=== PATIENT | male | born 1960 | race Caucasian/White ===

== ENCOUNTER 2019-07-12 11:18 | Inpatient (IN) ==
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
--- NOTE | 2019-07-12 12:04 | Diag Imaging Result Doc PS360 ---
EXAM: CHEST-1 VIEW 07/12/2019 HISTORY: sob TECHNIQUE: AP portable upright at 1155 COMMENT: Considering differences in technique and inspiration there has been no appreciable change since 11/22/2017. IMPRESSION: Stable chest. Electronically signed by Feliciano Greco 07/12/2019 12:02 PM
[2019-07-12] MEDS ORDERED: DUONEB (A & A) INH ONE (12:10)
[2019-07-12 12:31] LABS: BASO# 0.03 X1000 (0.0-0.2); BASO% 0.4 % (0.0-0.8); EOS# 0.13 X1000 (0.0-0.7); EOS% 1.8 % (0.0-10.0); HEMATOCRIT 56.9 % (42.0-52.0); HEMOGLOBIN 17.3 g/dL (14.0-18.0); IMM GRAN# 0.02 X1000 (0.0-0.04); IMM GRAN% 0.3 % (0.0-0.5); LYMPH# 1.73 X1000 (1.2-3.4); LYMPH% 23.5 % (20.5-51.1); MCH 30.1 PG (27-31); MCHC 30.4 g/dL (33-37); MCV 99.1 FL (81-99); MONO# 0.55 X1000 (0.11-0.59); MONO% 7.5 % (1.7-9.3); MPV 11.5 FL (7.4-10.4); NEUT# 4.91 X1000 (1.4-6.5); NEUT% 66.5 % (42.2-75.2); PLT 183 X1000 (130-400); RBC 5.74 XMIL (4.7-6.1); RDW 15.1 % (11.5-14.5); WBC 7.37 X1000 (4.8-10.8)
[2019-07-12 12:36] LABS: BE 8.7 mmoll (-3.0-3.0); BLOOD TYPE ARTERIAL; HCO3-(ACT) 31.5 mmoll (20.0-26.0); METHB 0.9 % (0.0-1.5); MODALITY CANNULA; O2(CT) 23.6 mL/dL (15.0-23.0); O2HB 92.7 % (95.0-99.0); PO2(98.6) 83 mmHg (60-100); SAMPLE BLOOD; THB 18.1 g/dL (11.5-17.4); pH(98.6) 7.35 (7.35-7.45)
[2019-07-12 12:38] LABS: ALLEN TEST YES; PCO2(98.6) 69 mmHg (35-45)
[2019-07-12 12:42] LABS: AGAP 7; ALB/GLOB RATIO 1.4; ALKALINE PHOSPHATASE 108 U/L (32-122); BUN 11 mg/dL (8-22); CHLORIDE 96 mmol/L (98-107); COSMO 276; CREATININE 0.7 mg/dL (0.7-1.2); ESTIMATED GFR > 60; GLUCOSE 110 mg/dL (70-104); GOT 27 U/L (10-34); GPT 37 U/L (10-44); POTASSIUM 5.2 mmol/L (3.5-5.1); SODIUM 138 mmol/L (136-145); TCO2 35 mmol/L (25-35); TOTAL BILIRUBIN 0.32 mg/dL (0.20-1.00); TOTAL PROTEIN 6.9 g/dL (6.3-8.3)
[2019-07-12 12:43] LABS: INR 0.89; PROTIME 12.2 Seconds (11.0-16.0)
[2019-07-12 12:44] LABS: PTT 26.1 Seconds (22.3-41.8)
--- NOTE | 2019-07-12 12:51 | EKG Report ---
Test Performed on : 07/12/2019 11:28:23 AM Test Reason : CP Blood Pressure : / mmHG Vent. Rate : 095 BPM Atrial Rate : 095 BPM P-R Int : 154 ms QRS Dur : 092 ms QT Int : 414 ms P-R-T Axes : 041 095 066 degrees QTc Int : 520 ms Normal sinus rhythm. Rightward axis T wave abnormality, consider anterolateral ischemia Prolonged QT Abnormal ECG When compared with ECG of 22-NOV-2017 17:23, Nonspecific T wave abnormality now evident in Inferior leads T wave inversion now evident in Anterolateral leads Unconfirmed Result
[2019-07-12 12:52] LABS: CK PROFILE 289 U/L (24-204)
[2019-07-12 13:25] LABS: CK INDEX 4.4 (0.0-2.5); CK-MB 12.83 ng/mL (0.0-5.0)
[2019-07-12 13:47] LABS: BILIRUBIN URINE NEGATIVE (NEGATIVE); BLOOD URINE NEGATIVE (NEGATIVE); COLOR YELLOW; GLUCOSE URINE NEGATIVE (NEGATIVE); KETONE URINE NEGATIVE (NEGATIVE); LEUKOCYTES URINE NEGATIVE (NEGATIVE); NITRITE URINE NEGATIVE (NEGATIVE); PROTEIN URINE 70 mg/dL (NEGATIVE); SP GRAVITY URINE 1.017; TURBIDITY URINE CLEAR (CLEAR); URINE SOURCE CLEAN CATCH; UROBILINOGEN URINE NORMAL (NORMAL)
[2019-07-12 13:49] LABS: UR EPITHELIAL CELLS <10 /HPF (<10); URINE BACTERIA NEGATIVE /HPF; URINE RBC <10 /HPF (<10); URINE WBC <10 /HPF (<10)
[2019-07-12] MEDS ORDERED: SOLU-MEDROL IV ONE (14:10)
[2019-07-12] MEDS: ROCEPHIN 1 GM in NS 50 ML IV SCH (14:30)
[2019-07-12 14:53] LABS: FREE T4 1.08 ng/dL (0.93-1.70); TSH 1.64 uIUmL (0.27-4.20)
[2019-07-12 14:59] LABS: UR AMPHETAMINES QUAL NONE DETECTED (NONE DETECT); UR BARBITUATES QUAL NONE DETECTED (NONE DETECT); UR BENZODIAZEPIN QUAL NONE DETECTED (NONE DETECT); UR CANNABINOIDS QUAL NONE DETECTED (NONE DETECT); UR COCAINE QUAL NONE DETECTED (NONE DETECT); UR METHADONE QUAL NONE DETECTED (NONE DETECT); UR OPIATES QUAL NONE DETECTED (NONE DETECT); UR OXYCODONE QUAL NONE DETECTED (NONE DETECT); UR PCP QUAL NONE DETECTED (NONE DETECT)
[2019-07-12] MEDS: DUONEB (A & A) INH SCH ×3 (15:30→23:55)
[2019-07-12] MEDS ORDERED: TYLENOL PO PRN (17:02)
[2019-07-12] MEDS ORDERED: ZOFRAN IV PRN (17:02)
--- NOTE | 2019-07-12 19:02 | ED EKG INTERP ---
This chart was entered by Kelsy Cabral Scribe, acting as scribe for Luciano Sanchez MD. EKG Interpretation - EKG Time of EKG reading by physician:: 11:28 EKG Read and Signed by:: Luciano Sanchez EKG Interpretation (*Must complete 3 of following elements*): Abnormal Rate: 95 Rhythm: Normal sinus rhythm [place]: right ST Wave: non-specific ST changes Comments: no STEMI, prolonged QT interval Attestation - Physician/ SAMSON Attestation The physician spent face to face time with patient:: Yes Advanced Practice Provider documentation review:: Supervising physician onsite and consulted in the evaluation and care of this patient. The physician did have a face to face encounter with the patient. This chart was documented by the indicated scribe, (Kelsy Cabral, Lena) and accurately reflects the services I performed and decisions made by me, Luciano Sanchez MD, as attested by the provider's signature.
[2019-07-12] MEDS: PULMICORT INH SCH (20:07)
[2019-07-12] MEDS: SOLU-MEDROL IV SCH (22:32)
[2019-07-13 04:36] LABS: ALLEN TEST YES; BE 3.2 mmoll (-3.0-3.0); BLOOD TYPE ARTERIAL; HCO3-(ACT) 27.3 mmoll (20.0-26.0); METHB 0.6 % (0.0-1.5); O2(CT) 24.5 mL/dL (15.0-23.0); O2HB 94.6 % (95.0-99.0); PO2(98.6) 86 mmHg (60-100); SAMPLE BLOOD; THB 18.4 g/dL (11.5-17.4)
[2019-07-13 04:39] LABS: PCO2(98.6) 66 mmHg (35-45)
[2019-07-13 04:40] LABS: MODALITY CANNULA
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
[2019-07-13] MEDS: DUONEB (A & A) INH SCH ×5 (06:28→23:00)
[2019-07-13] MEDS: PULMICORT INH SCH ×2 (06:30→19:27)
[2019-07-13] MEDS: SOLU-MEDROL IV SCH ×3 (06:49→23:09)
[2019-07-13 07:36] LABS: HEMOGLOBIN 17.7 g/dL (14.0-18.0); LYMPH# 0.68 X1000 (1.2-3.4); LYMPH% 10.4 % (20.5-51.1); MCH 29.9 PG (27-31); MCHC 30.5 g/dL (33-37); MCV 98.1 FL (81-99); MONO# 0.19 X1000 (0.11-0.59); MONO% 2.9 % (1.7-9.3); MPV 11.4 FL (7.4-10.4); NEUT# 5.68 X1000 (1.4-6.5); NEUT% 86.7 % (42.2-75.2); PLT 193 X1000 (130-400); RBC 5.91 XMIL (4.7-6.1); WBC 6.55 X1000 (4.8-10.8)
[2019-07-13 08:05] LABS: AGAP 12; ALB/GLOB RATIO 1.3; ALBUMIN 4.1 g/dL (3.5-5.0); ALKALINE PHOSPHATASE 104 U/L (32-122); BUN 13 mg/dL (8-22); CALCIUM 9.3 mg/dL (8.8-10.2); CHLORIDE 91 mmol/L (98-107); COSMO 276; CREATININE 0.8 mg/dL (0.7-1.2); ESTIMATED GFR > 60; GLUCOSE 173 mg/dL (70-104); GOT 19 U/L (10-34); GPT 34 U/L (10-44); POTASSIUM 4.5 mmol/L (3.5-5.1); SODIUM 136 mmol/L (136-145); TCO2 33 mmol/L (25-35); TOTAL BILIRUBIN 0.35 mg/dL (0.20-1.00); TOTAL PROTEIN 7.3 g/dL (6.3-8.3)
[2019-07-13 10:01] LABS: LYMPHS 20 % (21-51); MONO 2 % (1-9); SEGS 78 % (42-75)
[2019-07-13] MEDS: LOVENOX SUBQ SCH (11:10)
--- NOTE | 2019-07-13 12:10 | Diag Imaging Result Doc PS360 ---
EXAM: CHEST-2 VIEWS 07/13/2019 HISTORY: short of breath TECHNIQUE: Two views of the chest COMMENT: The inspiration is slightly better than on the previous study of 07/12/2019. No definite focal consolidation is present although there is ill-defined opacity over the left costophrenic angle region. This may represent a small focus of pneumonia or atelectasis. IMPRESSION: Minimal left lower lobe atelectasis. Electronically signed by Feliciano Greco 07/13/2019 12:08 PM
[2019-07-13] MEDS: ACCOLATE PO SCH ×2 (12:37→20:29)
--- NOTE | 2019-07-13 14:05 | ECHO REPORT ---
ORDER DATE: 07/12/2019 INDICATION: Dyspnea, elevated proBNP. FINDINGS: 1. The right atrium appears somewhat enlarged. 2. Mild tricuspid regurgitation. RV systolic pressure of 46. 3. Right ventricle appears enlarged with mild reduction in RV systolic function. There is some flattening of the interventricular septum, suggesting right ventricular pressure and volume overload. 4. Trace pulmonic insufficiency. 5. Suggestion of mild left atrial enlargement with a dimension of 4.6 cm. 6. No mitral prolapse. Mild mitral regurgitation. No mitral stenosis. 7. Normal LV size, end-diastolic dimension of 4.6 cm. Mild left ventricular hypertrophy with a posterior and interventricular septal wall thickness 1.2 cm. Normal LV systolic function. Estimated EF of 65% with normal wall motion. 8. Aortic valve opens well. It is trileaflet. No evidence of stenosis or insufficiency. 9. Aorta appears normal in visualized segments. 10. No pericardial effusion identified. 11. Based on the appearance of the right ventricle, if clinical situation correlates, would consider possible sleep apnea evaluation in the future. cc: Pérez Figueredo MD
[2019-07-13] MEDS: ROCEPHIN 1 GM in NS 50 ML IV SCH (15:21)
--- NOTE | 2019-07-13 15:35 | PROGRESS NOTE ---
DATE: 07/13/2019 INTERVAL HISTORY: The patient with only minimal improvement in dyspnea on exertion. Still some fairly significant wheezing. He has tolerated the steroid so far with none of his previous intolerance. Remains afebrile. No acute events overnight. No new complaints. REVIEW OF SYSTEMS: Twelve-point review of systems negative except as per interval history. LABS: WBC 6.5, hemoglobin 17.7, hematocrit 58, platelets 193,000. ABG with pH 7.3, pCO2 of 66, PO2 of 86 on 3 liters by nasal cannula. Sodium 136, potassium 4.5, BUN 13, creatinine 0.8, glucose 173. Troponin negative x3. VITAL SIGNS: T-max 98.5 degrees, pulse 86, respirations 24, blood pressure 138/64, and O2 saturation 90% on 3 liters by nasal cannula. IMAGING: Repeat chest x-ray with minimal left lower lobe atelectasis. No evidence of pneumonia. Echocardiogram with mild to moderate pulmonary hypertension at 46 and evidence of right ventricular failure again suggesting pulmonary hypertension. PHYSICAL EXAMINATION: General: No acute distress, morbidly obese. Vital Signs: As above. HEENT: Normocephalic, atraumatic. Moist mucous membranes. Cardiovascular: Regular rate and rhythm. No murmurs noted. Pulmonary: Still with fairly significantly decreased breath sounds throughout and expiratory wheezing slightly improved from previous. Abdomen: Soft, nontender, nondistended. Bowel sounds positive. Extremities: Peripheral pulses intact. No clubbing or cyanosis. Neurologic: Cranial nerves grossly intact. No focal deficits identified. Psychiatric: Normal mood and affect. Awake, alert, oriented x3. ASSESSMENT AND PLAN: 1. Acute on chronic hypoxic and hypercapnic respiratory failure, chronic obstructive pulmonary disease exacerbation. Oxygenation about the same. We may have to go up slightly on his oxygen from the 3 liters he is supposed to be on at home. The patient had reported previous intolerance to steroids. We started a relatively low dose given his ongoing symptoms and his tolerance of steroids so far. We will go ahead and increase those some and continue to monitor. Continue DuoNeb, pulmonary toilet. Repeat ABG in the morning. ABG today showed minimal improvement in his CO2 retention and essentially stable oxygenation. Discussed with case management options trying get him oxygen at home, and even though the patient is living in a fdc/intermediate house they believe that he can be set up with regular oxygen at home. 2. Hyperkalemia, resolved with fluids overnight. 3. Morbid obesity. Patient has been counseled on diet and exercise. 4. Elevated BNP, pulmonary hypertension. The patient's BNP elevated on admission. Not really any fluid on chest x-ray, but there was some concern for congestive heart failure contributing to his issues. Echocardiogram, however, shows normal ejection fraction. Does suggest pulmonary hypertension likely related to either sleep apnea or his chronic untreated hypoxia. The patient was supposed to be on 3 liters of oxygen at home, but has been off of that for approximately 1 year.
[2019-07-14 04:55] LABS: ALLEN TEST YES; BE 4.2 mmoll (-3.0-3.0); BLOOD TYPE ARTERIAL; HCO3-(ACT) 28.1 mmoll (20.0-26.0); O2HB 93.8 % (95.0-99.0); PO2(98.6) 71 mmHg (60-100); SAMPLE BLOOD; SAO2 96.2 % (95.0-100.0); THB 16.7 g/dL (11.5-17.4); pH(98.6) 7.29 (7.35-7.45)
[2019-07-14] MEDS: SOLU-MEDROL IV SCH ×3 (05:00→23:19)
[2019-07-14 05:04] LABS: PCO2(98.6) 70 mmHg (35-45)
[2019-07-14 05:05] LABS: MODALITY CANNULA
[2019-07-14 07:19] LABS: HEMATOCRIT 57.4 % (42.0-52.0); HEMOGLOBIN 17.1 g/dL (14.0-18.0); IMM GRAN# 0.02 X1000 (0.0-0.04); IMM GRAN% 0.2 % (0.0-0.5); LYMPH# 0.52 X1000 (1.2-3.4); LYMPH% 5.8 % (20.5-51.1); MCH 30.1 PG (27-31); MCHC 29.8 g/dL (33-37); MCV 100.9 FL (81-99); MONO# 0.26 X1000 (0.11-0.59); MONO% 2.9 % (1.7-9.3); MPV 11.3 FL (7.4-10.4); NEUT# 8.22 X1000 (1.4-6.5); NEUT% 91.1 % (42.2-75.2); PLT 183 X1000 (130-400); RBC 5.69 XMIL (4.7-6.1); RDW 15.1 % (11.5-14.5); WBC 9.02 X1000 (4.8-10.8)
[2019-07-14 07:47] LABS: AGAP 8; ALB/GLOB RATIO 1.3; ALKALINE PHOSPHATASE 91 U/L (32-122); BUN 19 mg/dL (8-22); CALCIUM 9.2 mg/dL (8.8-10.2); CHLORIDE 99 mmol/L (98-107); COSMO 289; CREATININE 0.8 mg/dL (0.7-1.2); ESTIMATED GFR > 60; GLUCOSE 163 mg/dL (70-104); GOT 20 U/L (10-34); GPT 38 U/L (10-44); POTASSIUM 5.3 mmol/L (3.5-5.1); SODIUM 142 mmol/L (136-145); TCO2 35 mmol/L (25-35); TOTAL BILIRUBIN 0.15 mg/dL (0.20-1.00)
[2019-07-14] MEDS: DUONEB (A & A) INH SCH ×5 (08:17→23:11)
[2019-07-14] MEDS: PULMICORT INH SCH ×2 (08:17→19:44)
[2019-07-14] MEDS: LOVENOX SUBQ SCH (09:30)
[2019-07-14] MEDS: ACCOLATE PO SCH ×2 (09:31→23:23)
[2019-07-14] MEDS ORDERED: ROBITUSSIN PO PRN (10:20)
[2019-07-14] MEDS ORDERED: KAYEXALATE PO ONE (11:30)
--- NOTE | 2019-07-14 11:56 | PROGRESS NOTE ---
DATE: 07/14/2019 SUBJECTIVE: The patient is awake. Not in any obvious distress. OBJECTIVE: Vital signs: Vital signs are as follows: Temperature is 98.1 degrees, pulse 86, respiration rate 16, blood pressure is 110/58, oxygen saturation is 95%. HEENT: Atraumatic, normocephalic. Cardiovascular system: S1, S2. Respiratory system: Has evidence of good air entry bilaterally. Abdomen: Soft, nontender. No masses felt. Extremities: No evidence of significant edema in the lower extremities. Central nervous system: No obvious focal deficit noted. LABORATORY DATA: WBCs 9.02, hematocrit 37.4, platelet count is 183. ABG is 7.29/70/71/96.2%. Sodium is 142, potassium 5.2, chloride is 99, bicarbonate is 25. BUN is 19, creatinine 0.8. IMAGING STUDIES: X-ray of the chest was done on 07/13/2019 and shows minimal left lower lobe atelectasis. ASSESSMENT AND PLAN: 1. Acute hypercapnic respiratory failure secondary to chronic obstructive pulmonary disease. Maintain patient on oxygen supplementation. Follow up on patient's clinical progression, including arterial blood gases. 2. Chronic obstructive pulmonary disease exacerbation. Maintain patient on nebulized bronchodilators, along with steroids and also antibiotics. 3. Hyperkalemia. Patient given a dose of Kayexalate. We will follow up on potassium level. 4. Erythrocytosis most likely secondary to chronic hypoxia. The patient can follow up with Hematology in the outpatient. 5. Deep vein thrombosis prophylaxis. Lovenox. 6. Gastrointestinal prophylaxis. Proton pump inhibitor. cc: Medardo Beckford MD [facility]
[2019-07-14] MEDS: ROCEPHIN 1 GM in NS 50 ML IV SCH (13:47)
[2019-07-14] MEDS: HUMALOG SUBQ SCH ×2 (16:59→22:49)
[2019-07-15] MEDS: SOLU-MEDROL IV SCH ×2 (06:12→14:27)
[2019-07-15 06:49] LABS: ALLEN TEST YES; BE 9.2 mmoll (-3.0-3.0); BLOOD TYPE ARTERIAL; METHB 0.9 % (0.0-1.5); O2(CT) 23.8 mL/dL (15.0-23.0); O2HB 96.1 % (95.0-99.0); PO2(98.6) 137 mmHg (60-100); SAMPLE BLOOD; SAO2 98.5 % (95.0-100.0); THB 17.5 g/dL (11.5-17.4); pH(98.6) 7.21 (7.35-7.45)
[2019-07-15 06:51] LABS: MODALITY VENTIMASK; PCO2(98.6) 108 mmHg (35-45)
[2019-07-15] MEDS ORDERED: PROTONIX PO SCH (07:00)
[2019-07-15] MEDS: PULMICORT INH SCH (07:56)
[2019-07-15] MEDS: DUONEB (A & A) INH SCH ×4 (07:57→23:00)
[2019-07-15 08:03] LABS: EOS# 0.03 X1000 (0.0-0.7); EOS% 0.4 % (0.0-10.0); HEMATOCRIT 58.9 % (42.0-52.0); HEMOGLOBIN 17.3 g/dL (14.0-18.0); IMM GRAN# 0.02 X1000 (0.0-0.04); IMM GRAN% 0.2 % (0.0-0.5); LYMPH# 0.53 X1000 (1.2-3.4); LYMPH% 6.2 % (20.5-51.1); MCH 30.2 PG (27-31); MCHC 29.4 g/dL (33-37); MONO% 2.4 % (1.7-9.3); MPV 12.4 FL (7.4-10.4); NEUT# 7.71 X1000 (1.4-6.5); NEUT% 90.8 % (42.2-75.2); PLT 113 X1000 (130-400); RBC 5.72 XMIL (4.7-6.1); RDW 15.4 % (11.5-14.5); WBC 8.49 X1000 (4.8-10.8)
[2019-07-15] MEDS: HUMALOG SUBQ SCH ×3 (08:34→16:43)
--- NOTE | 2019-07-15 08:56 | PROGRESS NOTE ---
DATE: 07/15/2019 SUBJECTIVE: Patient is resting comfortably. He is on BiPAP. OBJECTIVE: Vital signs: Temperature is 98.8 degrees, pulse is 94, respirations 20, blood pressure is 143/52, oxygen saturation is 100%. HEENT: Atraumatic, normocephalic. BiPAP in place. Cardiovascular: S1, S2. Respiratory: Has evidence of good air entry bilaterally. Abdomen: Soft, nontender. No masses felt. Extremities: No evidence of edema. Central nervous system: No obvious focal deficit noted. LABORATORY DATA: WBC is 8.47, hematocrit is 58.9 with a platelet count of 113,000. ABG 7.21/108/137/98.5. ASSESSMENT AND PLAN: 1. Acute hypercapnic respiratory failure secondary to chronic obstructive pulmonary disease exacerbation. Maintain patient on oxygen supplementation as well as BiPAP. The patient is a DNR. 2. Chronic obstructive pulmonary disease exacerbation. Continue nebulized bronchodilators, steroids as well as antibiotics. Maintain patient on BiPAP. 3. Erythrocytosis secondary to chronic hypoxia. Aware. 4. Advanced Directive. The patient is DNR. 5. Deep vein thrombosis prophylaxis. Lovenox. 6. Gastrointestinal prophylaxis. Proton pump inhibitor. cc: Medardo Beckford MD
[2019-07-15 08:57] LABS: HEMOGLOBIN A1C 6.2 % (4.8-6.0)
[2019-07-15 08:59] LABS: AGAP 8; ALB/GLOB RATIO 1.3; ALKALINE PHOSPHATASE 99 U/L (32-122); BUN 19 mg/dL (8-22); CHLORIDE 94 mmol/L (98-107); COSMO 283; CREATININE 0.7 mg/dL (0.7-1.2); ESTIMATED GFR > 60; GLUCOSE 155 mg/dL (70-104); GOT 48 U/L (10-34); GPT 79 U/L (10-44); POTASSIUM 5.1 mmol/L (3.5-5.1); SODIUM 139 mmol/L (136-145); TCO2 37 mmol/L (25-35); TOTAL BILIRUBIN 0.21 mg/dL (0.20-1.00)
[2019-07-15] MEDS: ACCOLATE PO SCH (09:14)
[2019-07-15] MEDS: LOVENOX SUBQ SCH (09:23)
[2019-07-15 10:11] LABS: ALLEN TEST YES; BE 11.1 mmoll (-3.0-3.0); BLOOD TYPE ARTERIAL; HCO3-(ACT) 33.6 mmoll (20.0-26.0); METHB 0.8 % (0.0-1.5); O2(CT) 24.4 mL/dL (15.0-23.0); O2HB 97.1 % (95.0-99.0); PO2(98.6) 212 mmHg (60-100); SAMPLE BLOOD; THB 17.6 g/dL (11.5-17.4)
[2019-07-15 10:15] LABS: pH(98.6) 7.15 (7.35-7.45)
[2019-07-15 10:16] LABS: MODALITY BI PAP; PCO2(98.6) 137 mmHg (35-45)
[2019-07-15] MEDS ORDERED: HALDOL IM ONE (10:42)
[2019-07-15 12:04] LABS: ALLEN TEST YES; BE 11.3 mmoll (-3.0-3.0); BLOOD TYPE ARTERIAL; HCO3-(ACT) 33.5 mmoll (20.0-26.0); METHB 0.9 % (0.0-1.5); O2(CT) 22.9 mL/dL (15.0-23.0); O2HB 90.8 % (95.0-99.0); PO2(98.6) 70 mmHg (60-100); SAMPLE BLOOD; SAO2 92.9 % (95.0-100.0)
[2019-07-15 12:05] LABS: MODALITY BI PAP
[2019-07-15 12:06] LABS: SRATE 24 BPM
[2019-07-15 12:08] LABS: PCO2(98.6) 147 mmHg (35-45); pH(98.6) 7.13 (7.35-7.45)
[2019-07-15] MEDS ORDERED: HALDOL IM PRN (12:21)
[2019-07-15] MEDS: ROCEPHIN 1 GM in NS 50 ML IV SCH (14:27)
[2019-07-15] MEDS: MORPHINE IV PRN (14:31)
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
[2019-07-16] MEDS: DUONEB (A & A) INH SCH ×7 (00:48→23:57)
[2019-07-16] MEDS: PULMICORT INH SCH (06:41)
[2019-07-16] MEDS: PROTONIX PO SCH (18:03)
--- NOTE | 2019-07-16 18:10 | PROGRESS NOTE ---
DATE: 07/16/2019 INTERVAL HISTORY: Patient now on comfort measures only. Has had some hypoxia, but otherwise pretty asymptomatic with it. Hospice was consulted this morning and evaluated patient, but they have reservations about him going to a prison house. Also the prison house, when contacted, has reservations about him being on any kind of benzos or narcotics which would usually be used to control dyspnea when on hospice. Placement attempts are ongoing. REVIEW OF SYSTEMS: Twelve-point review of systems negative as per interval history. VITALS: T-max 98.9, pulse 84, respirations 19, blood pressure 140/72, O2 saturation 97% on nasal cannula. PHYSICAL EXAMINATION: General: No acute distress. Vitals: As above. Cardiovascular: Regular rate and rhythm. No murmurs noted. Pulmonary: Significantly decreased throughout but still some mild expiratory wheezing. Abdomen: Soft, nontender, nondistended. Bowel sounds positive. Extremities: Peripheral pulses intact. Neurologic: Cranial nerves grossly intact. No focal deficits. Psychiatric: Normal mood and affect. Awake, alert, and answers all orientation questions appropriately, although he appears intermittently mildly confused. ASSESSMENT AND PLAN: 1. Acute on chronic hypoxic and hypercapnic respiratory failure, end-stage chronic obstructive pulmonary disease with exacerbation. The patient now going on comfort care. It appears the patient will likely be a placement issue, as his only place to go is a prison house, but they will not allow hospice medications, and hospice is reluctant to sign on him going to the prison house. systems project manager is aware, and is seeking other options. Continue symptomatic treatment. 2. Morbid obesity, pulmonary hypertension, obstructive sleep apnea. The patient is now comfort care. 3. Gastroesophageal reflux disease. It appears the patient's proton pump inhibitor was discontinued at some point. We will go ahead and restart that as patient has requested.
[2019-07-17] MEDS: PROTONIX PO SCH (06:21)
[2019-07-17] MEDS: DUONEB (A & A) INH SCH ×5 (08:17→23:23)
[2019-07-17] MEDS: MORPHINE IV PRN ×2 (11:21→21:09)
--- NOTE | 2019-07-17 16:39 | PROGRESS NOTE ---
DATE: 07/17/2019 SUBJECTIVE: This patient is lying comfortably in bed at this moment. He is not complaining of chest pain or shortness of breath, but he has been complaining of generalized weakness, his is at the bedside and as per the , they are homeless, he has been placed on comfort care treatment but today for some reason they are demanding to get more therapy because they are planning to go home, apparently he has been on oxygen before as well, but they stopped using oxygen because they do not have insurance, as per the he has been having some tremors and likely this is because of his blood sugar, so I will put this patient on pattern blood sugar and sliding scale insulin just in case, and they are basically demanding to restart his home medications, which I did, it looks like hospice has been on board, but this patient does not meet inpatient criteria and as far as I know, they do not have a bed. They do not have a house, he is a heavy smoker and he is still smoking. OBJECTIVE: Vital Signs: Temperature 98.4 degrees, pulse 84, respiratory rate 19, blood pressure 142/114, oxygen saturation 96 on 6 L of nasal cannula. HEENT: Head normocephalic, no trauma. PERRLA. Neck: Supple. No JVD. No masses. Central trachea. Chest: Decreased breath sounds significantly with faint expiratory wheezing. Abdomen: Distended, protuberant with positive bowel sounds. Is soft. Extremities: No edema, no clubbing, no cyanosis. Neurological: This patient is awake. He is alert, he is oriented, but he does have generalized weakness, but apparently as per the he has been on and off confused. LABORATORY: No lab work done today. ASSESSMENT AND PLAN: 1. Acute on chronic hypoxemic and hypercarbic respiratory failure due to end-stage chronic obstructive pulmonary disease with exacerbation, it looks like this patient was placed on comfort care and comfort measures, the problem would be placement. Apparently, the talked to the place she is staying with and they agreed to take some treatment in that place, including narcotics, but I am not quite sure about it. We will need to call this Friday to corroborate that information. It looks like hospice has been set up and Palliative Care is on board, the patient and the basically are demanding to put him back on some of his home medications, which I did, and get some lab work, especially blood sugar because she believes the blood sugar is dropping. 2. Chronic obstructive pulmonary disease exacerbation, as above. I think it is better. He has some mild, faint, expiratory wheezing. 3. Morbid obesity, pulmonary hypertension, obstructive sleep apnea. Continue with same management. 4. Gastroesophageal reflux disease. Continue proton pump inhibitors. 5. Generalized weakness. Continue physical therapy and occupational therapy now. 6. This patient has been placed on comfort measures/comfort care but today for some reason they are demanding treatment. They are demanding to put him back on his home medications, and also he is asking for more rehab, so he can get his strength back, he knows he is an end-stage chronic obstructive pulmonary disease and the also knows that but they believe they can go back to their place that they are staying at right now and they will allow them to keep medications including pain medication, but I am not quite sure about it. I will wait until Friday so the social services assistant and the palliative care team can take care of this. cc: Thaddeus Angulo MD
[2019-07-17] MEDS: HUMULIN R SUBQ SCH (21:10)
[2019-07-17] MEDS: ACCOLATE PO SCH (21:19)
[2019-07-18] MEDS: HUMULIN R SUBQ SCH ×5 (06:24→20:04)
[2019-07-18] MEDS: PROTONIX PO SCH (06:51)
[2019-07-18 07:41] LABS: BASO# 0.01 X1000 (0.0-0.2); BASO% 0.1 % (0.0-0.8); EOS# 0.11 X1000 (0.0-0.7); EOS% 1.5 % (0.0-10.0); HEMATOCRIT 57.2 % (42.0-52.0); IMM GRAN# 0.02 X1000 (0.0-0.04); IMM GRAN% 0.3 % (0.0-0.5); LYMPH# 1.31 X1000 (1.2-3.4); LYMPH% 17.4 % (20.5-51.1); MCH 30.3 PG (27-31); MCHC 29.7 g/dL (33-37); MONO# 0.53 X1000 (0.11-0.59); MPV 11.2 FL (7.4-10.4); NEUT# 5.57 X1000 (1.4-6.5); NEUT% 73.7 % (42.2-75.2); PLT 141 X1000 (130-400); RBC 5.61 XMIL (4.7-6.1); RDW 14.4 % (11.5-14.5); WBC 7.55 X1000 (4.8-10.8)
[2019-07-18 08:08] LABS: AGAP 5; ALB/GLOB RATIO 1.3; ALBUMIN 3.6 g/dL (3.5-5.0); ALKALINE PHOSPHATASE 80 U/L (32-122); BUN 12 mg/dL (8-22); CHLORIDE 93 mmol/L (98-107); COSMO 277; CREATININE 0.5 mg/dL (0.7-1.2); ESTIMATED GFR > 60; GLUCOSE 130 mg/dL (70-104); GOT 15 U/L (10-34); GPT 43 U/L (10-44); MAGNESIUM 1.9 mg/dL (1.5-2.7); PHOSPHORUS 3.5 mg/dL (2.7-4.5); POTASSIUM 4.6 mmol/L (3.5-5.1); SODIUM 138 mmol/L (136-145); TCO2 40 mmol/L (25-35); TOTAL BILIRUBIN 0.58 mg/dL (0.20-1.00); TOTAL PROTEIN 6.4 g/dL (6.3-8.3)
[2019-07-18] MEDS: DUONEB (A & A) INH SCH ×5 (08:14→23:19)
[2019-07-18] MEDS: ACCOLATE PO SCH ×2 (09:55→20:04)
--- NOTE | 2019-07-18 14:09 | PROGRESS NOTE ---
DATE: 07/18/2019 SUBJECTIVE: This patient is lying comfortably in bed. He is complaining of some shortness of breath but no chest pain. He does have generalized weakness. No family members at the bedside. OBJECTIVE: Vital Signs: Temperature 98 degrees, pulse 86, respiratory rate 19, blood pressure 125/60, oxygen saturation 96 on 5 L nasal cannula. HEENT: Head normocephalic, no trauma. PERRLA. Neck: Supple. No JVD. No masses. Central trachea. Chest: Decreased breath sounds significantly with some faint expiratory wheezing. Abdomen: Soft, protuberant, positive bowel sounds. Extremities: No edema, no clubbing, no cyanosis. Neurological: Patient is awake. He is alert. He is oriented. He does have generalized weakness. He is not confused at this moment for me. Yesterday as per the , he has been confused on and off. LABORATORY: WBC 7.5, hemoglobin 17, hematocrit 57.2, platelets 141,000. Sodium 138, potassium 4.6, chloride 93, bicarbonate 40, BUN 12, creatinine 0.5, glucose 130, calcium 9. ASSESSMENT AND PLAN: 1. Acute on chronic hypoxemic and hypercarbic respiratory failure due to end-stage chronic obstructive pulmonary disease with exacerbation. It looks like this patient was placed on comfort measures only, and actually it looks like Hospice has been on board, but as per the patient and the , they are planning to go back to his place with treatment, so I am not quite sure if this patient will want to go with only hospice. Palliative Care and long term care social worker on board. I will wait for more recommendations. 2. Chronic obstructive pulmonary disease exacerbation as above. 3. Morbid obesity, pulmonary hypertension, and obstructive sleep apnea. Continue with same management. 4. Gastroesophageal reflux disease. Continue proton pump inhibitors. 5. Generalized weakness. Continue physical therapy and occupational therapy. Yesterday this patient was basically asking for more therapy because he is weak. This patient was placed on comfort measures only, but yesterday for some reason, they were demanding more treatment. I put him back on his medications. He was asking for more rehab so he can get his strength back. He knows he is an end-stage chronic obstructive pulmonary disease, as well as his , but they believe they can go back to her place and stay there with p.o. medication. As per the , they have a plan already set up with that place about the medications including narcotics. I will let the long term care social worker and palliative care department re-evaluate this patient, but I believe he would like to go back to his place. cc: Thaddeus Angulo MD
[2019-07-19] MEDS: HUMULIN R SUBQ SCH ×4 (06:16→21:17)
[2019-07-19] MEDS: PROTONIX PO SCH (06:17)
[2019-07-19] MEDS: DUONEB (A & A) INH SCH ×5 (07:27→22:39)
[2019-07-19] MEDS: ACCOLATE PO SCH ×2 (08:58→21:18)
--- NOTE | 2019-07-19 16:47 | PROVIDER PROGRESS NOTE ---
Progress Note Dr. Armstrong Progress Note/Pulmonary and or critical care We appreciated progress of care, Complications, change in diagnosis, and instructions to patient under direct supervision of Dr. Armstrong. Subjective: We note the level of consciousness, bed (chair) position, family presence (if any), level of lethargy, feeling of symptoms, and changes from baseline condition/symptom. The patient feels: better Patient is sitting at the edge of the bed. He has difficulty hearing, some productive cough at times, but no pleurisy. at the bedside. Vital Signs: We reviewed EMR current values for Pulse rate, Blood pressure, Pulse rate, respiratory rate and Pulse oximetry. Also noted other values and trends if present (e.g. I/O, CVP). Vital Signs 07/18/19 19:36 07/18/19 19:56 07/19/19 04:00 Temperature 98.2 F 99.6 F Pulse Rate 85 98 H 89 Respiratory Rate 21 22 17 Blood Pressure 130/60 106/72 O2 Sat by Pulse Oximetry 94 L 97 96 07/19/19 07:28 07/19/19 07:57 07/19/19 12:33 Temperature 97.7 F 98.3 F Pulse Rate 96 H 93 H 101 H Respiratory Rate 20 18 20 Blood Pressure 117/68 119/71 O2 Sat by Pulse Oximetry 93 L 95 95 07/19/19 16:38 Temperature 98.2 F Pulse Rate 91 H Respiratory Rate 20 Blood Pressure 132/74 O2 Sat by Pulse Oximetry 94 L Intake & Output 07/18/19 07/19/19 07/19/19 19:59 07:59 19:59 Other: Number of Continent Voids Not 3 4 Measured Number of Bowel Movements 0 0 Objective: We examined the following systems General and HEENT: Trachea Midline. Chest: Reduced Entry. Crackles. CVS: S1 S2. Abdomen: Non-tender. Bowel Sounds present. Distended. Semi-firm Extremities: No pedal edema Neuro: Alert. Weakness. Labs and Radiology: Reviewed available labs and radiology values available at time of EMR review. Laboratory Results 07/18/19 07/18/19 07/19/19 16:38 19:50 05:48 POC Glucose 200 H D 145 H 134 H 07/19/19 07/19/19 10:56 16:36 POC Glucose [address] H D [address] Armstrong evaluated and additional note below. Evaluation time in minutes: Less than 30 minutes Assessment: DNRI Respiratory failure COPD exacerbation, end stage Morbid Obesity with STEFFI Pulmonary hypertension Tobacco Abuse Plan Continue current treatment and supportive care per admitting and other teams on the case. Bronchodilators Appropriate DVT and GI prophylaxis Physical Therapy Comfort measures only Need oxygen for discharge. Input was appreciated from Admitting MD and other teams on the case.
--- NOTE | 2019-07-19 18:44 | PROGRESS NOTE ---
DATE: 07/19/2019 SUBJECTIVE: The patient is sitting at the bedside. He seems to be feeling better. He is still requiring 6 L of oxygen. He is feeling stronger, he is refusing to go to a rehab center. OBJECTIVE: Vital Signs: Temperature 98.2 degrees, pulse 91, respiratory rate 20, blood pressure 132/74. Oxygen saturation 94 on 6 L of nasal cannula. HEENT: Head normocephalic, no trauma. PERRLA. Neck: Supple. No JVD. No masses. Central trachea. Chest: Decreased breath sounds significantly with some faint expiratory wheezing. Abdomen: Soft. Protuberant. Positive bowel sounds. Extremities: No clubbing. No cyanosis. Neurological: Patient is awake. He is alert. He is oriented. He does have generalized weakness, but he feels stronger. He is not confused. LABORATORY: Glucose 141. ASSESSMENT AND PLAN: 1. Acute on chronic hypoxemic and hypercarbic respiratory failure due to end-stage chronic obstructive pulmonary disease with exacerbation. I will continue with same management. This patient is DNR level 1. Palliative Care has been consulted, and actually it looks like hospice has been consulted as well. I do believe this patient should go to rehab or some place with hospice. Once we have a place for him, I will discharge him. 2. Chronic obstructive pulmonary disease exacerbation, better. 3. Morbid obesity, pulmonary hypertension, and obstructive sleep apnea. Continue with same management. 4. Gastroesophageal reflux disease. Continue proton pump inhibitors. 5. Generalized weakness. Continue physical therapy and occupational therapy. cc: Thaddeus Angulo MD
[2019-07-19] MEDS: MORPHINE IV PRN (21:16)
[2019-07-20] MEDS: HUMULIN R SUBQ SCH ×4 (06:40→22:41)
[2019-07-20] MEDS: PROTONIX PO SCH (06:47)
[2019-07-20] MEDS: DUONEB (A & A) INH SCH ×5 (08:06→22:35)
[2019-07-20] MEDS: ACCOLATE PO SCH ×2 (09:21→22:41)
--- NOTE | 2019-07-20 13:25 | PROVIDER PROGRESS NOTE ---
Progress Note Dr. Armstrong Progress Note/Pulmonary and or critical care We appreciated progress of care, Complications, change in diagnosis, and instructions to patient under direct supervision of Dr. Armstrong. Subjective: We note the level of consciousness, bed (chair) position, family presence (if any), level of lethargy, feeling of symptoms, and changes from baseline condition/symptom. The patient feels: same. Patient is sitting at the edge of the bed. He has difficulty hearing, some productive cough which is a little worse today, but no pleurisy. and multiple other family including two kids at the bedside. Vital Signs: We reviewed EMR current values for Pulse rate, Blood pressure, Pulse rate, respiratory rate and Pulse oximetry. Also noted other values and trends if present (e.g. I/O, CVP). Vital Signs 07/19/19 16:38 07/19/19 19:29 07/19/19 19:33 Temperature 98.2 F 97.8 F Pulse Rate 91 H 92 H 92 H Respiratory Rate 20 20 Blood Pressure 132/74 125/82 O2 Sat by Pulse Oximetry 94 L 97 07/19/19 20:31 07/20/19 03:30 07/20/19 08:00 Temperature 98.0 F 97.5 F L Pulse Rate 95 H 86 Respiratory Rate 20 Blood Pressure 127/81 104/50 O2 Sat by Pulse Oximetry 95 96 99 07/20/19 08:07 07/20/19 13:11 Temperature 98.0 F Pulse Rate 96 H 90 Respiratory Rate 18 18 Blood Pressure 123/72 O2 Sat by Pulse Oximetry 96 94 L Intake & Output 07/19/19 07/20/19 07/20/19 19:59 07:59 19:59 Intake Total 720 / 720 0 / 720 Balance 720 / 720 0 / 720 Intake: Intake, IV Amount 0 / 0 Intake, Oral Amount 720 / 720 Other: Percent of Meal Consumed 100% Number of Continent Voids Not 4 0 1 Measured Number of Bowel Movements 1 0 Objective: We examined the following systems General and HEENT: Trachea Midline. Chest: Reduced Entry. Crackles. CVS: S1 S2. Abdomen: Non-tender. Bowel Sounds present. Distended. Extremities: No pedal edema Neuro: Alert/oriented x4. Labs and Radiology: Reviewed available labs and radiology values available at time of EMR review. Laboratory Results 07/19/19 07/19/19 07/20/19 16:36 20:03 06:39 POC Glucose 141 H [address] Armstrong evaluated and additional note below. Evaluation time in minutes: 10 minutes Assessment: DNRI Respiratory failure COPD exacerbation, end stage Morbid Obesity with STEFFI Pulmonary hypertension Tobacco Abuse Plan Continue current treatment and supportive care per admitting and other teams on the case. Bronchodilators; will add spiriva and symbicort back to patient's medication list. Appropriate DVT and GI prophylaxis Physical Therapy Comfort measures only Input was appreciated from Admitting MD and other teams on the case.
--- NOTE | 2019-07-20 19:28 | PROGRESS NOTE ---
DATE: 07/20/2019 SUBJECTIVE: No changes compared with yesterday. OBJECTIVE: Vital Signs: Temperature 98 degrees, pulse 90, respiratory rate 18, blood pressure 123/7, oxygen saturation 94% on 6 L of nasal cannula. HEENT: Head normocephalic, no trauma. PERRLA. Neck: Supple. No JVD. No masses. Central trachea. Chest: Decreased breath sounds globally with some mild faint expiratory wheezing, barrel chest. Abdomen: Soft, protuberant, positive bowel sounds. Extremities: No edema, clubbing, or cyanosis. Neurological: Patient is awake. He is alert. He is oriented. He does have generalized weakness, but he feels stronger. LABORATORY: Glucose 124. ASSESSMENT AND PLAN: 1. [id number] hypoxemic and hypercarbic respiratory failure due to end-stage chronic obstructive pulmonary disease with exacerbation. For now, we will continue with same management. This patient is DO NOT RESUSCITATE. Palliative Care on board as well as hospice. Once this patient has a place to go, we are going to be able to discharge him. 2. Chronic obstructive pulmonary disease exacerbation, better. 3. Morbid obesity/pulmonary hypertension/obstructive sleep apnea. Continue with same management. 4. Gastroesophageal reflux disease. Continue proton pump inhibitors. 5. Generalized weakness. Continue physical therapy. This patient refused to go to a rehab center. cc: Thaddeus Angulo MD
[2019-07-21] MEDS: HUMULIN R SUBQ SCH ×2 (06:21→13:43)
[2019-07-21] MEDS: PROTONIX PO SCH (06:37)
[2019-07-21] MEDS ORDERED: SPIRIVA INH SCH (07:30)
[2019-07-21] MEDS ORDERED: SYMBICORT 160/4.5 MICROGM INHALER INH SCH (07:30)
[2019-07-21] MEDS: ACCOLATE PO SCH (08:02)
[2019-07-21 08:23] VITALS: BP 123/82
[2019-07-21] MEDS: DUONEB (A & A) INH PRN ×2 (08:43→11:26)
--- NOTE | 2019-07-21 13:39 | PROVIDER PROGRESS NOTE ---
Progress Note Dr. Armstrong Progress Note/Pulmonary and or critical care We appreciated progress of care, Complications, change in diagnosis, and instructions to patient under direct supervision of Dr. Armstrong. Subjective: We note the level of consciousness, bed (chair) position, family presence (if any), level of lethargy, feeling of symptoms, and changes from baseline condition/symptom. The patient feels: better Patient is sitting at the edge of the bed. He has difficulty hearing, some dry cough at times, but no pleurisy. He is on NC 5L. He is ready to go home. at the bedside. Objective: Vital Signs: We reviewed EMR current values for Pulse rate, Blood pressure, Pulse rate, respiratory rate and Pulse oximetry. Also noted other values and trends if present (e.g. I/O, CVP). Vital Signs 07/20/19 16:10 07/20/19 19:43 07/20/19 20:00 Temperature 97.7 F 98.1 F Pulse Rate 86 90 94 H Respiratory Rate 20 20 Blood Pressure 134/78 133/78 O2 Sat by Pulse Oximetry 97 97 94 L 07/21/19 04:00 07/21/19 08:00 07/21/19 10:12 Temperature 98.2 F 98.2 F Pulse Rate 94 H 106 H 98 H Respiratory Rate 22 18 Blood Pressure 113/50 123/82 O2 Sat by Pulse Oximetry 90 L 97 97 07/21/19 11:27 Temperature Pulse Rate 98 H Respiratory Rate 18 Blood Pressure O2 Sat by Pulse Oximetry 94 L Intake & Output 07/20/19 07/21/19 07/21/19 19:59 07:59 19:59 Intake Total 820 / 820 0 / 820 Balance 820 / 820 0 / 820 Intake: Intake, IV Amount 0 / 0 Intake, Oral Amount 820 / 820 Other: Percent of Meal Consumed 100% Number of Continent Voids Not 4 2 Measured Number of Bowel Movements 1 1 Physical Examination: General: Sitting at the edge of the bed with no acute distress noted. HEENT: Trachea midline. Mucus pink and moist. Chest: Even and unlabored. Symmetrical excursion. Diminished breathing sounds with crackles bibasilarly. CVS: S1 and S2 noted. Abdomen: Soft. Distended. Non-tender. Bowel sounds present. Extremities: No pedal edema. Neuro: A/Ox3; speech fluent; follow simple commands. Labs and Radiology: Reviewed available labs and radiology values available at time of EMR review. Laboratory Results 07/20/19 07/20/19 07/20/19 10:38 16:14 21:15 POC Glucose 142 H 123 H 180 H 07/21/19 07/21/19 05:54 11:12 POC Glucose [address] Armstrong evaluated and additional note below. Evaluation time in minutes: 10 minutes Assessment: DNRI Respiratory failure COPD exacerbation, end stage Morbid Obesity with STEFFI Pulmonary hypertension Tobacco Abuse Plan Continue current treatment and supportive care per admitting and other teams on the case. Bronchodilators Appropriate DVT and GI prophylaxis Physical Therapy Hospice Discharge to home Input was appreciated from Admitting MD and other teams on the case.
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
== END 2019-07-21 15:52 | disposition hospice, home (50) | DRG 190 ==
LOC: SUPCPDRO → ED 11:18 → EDIPHOLD 17:11 → SUATTDRO 17:11 → 3N 20:54 → ICU 07-15 08:18 → 3N 07-15 21:23
PROVIDERS: ATTEND Internal Medicine